=== PATIENT | male | born 1975 | race Hispanic/Latino ===

== ENCOUNTER 2020-09-04 14:30 | Inpatient (IN) | payer OTHER ==
[2020-09-04] VITALS (12 sets, daily range): BP systolic 92–111; BP diastolic 54–64
[~2020-09-04] VITALS: Ht 175.3 cm; Wt 108.9 kg
[2020-09-04] MEDS ORDERED: ASPIRIN 325 MG TABLET ONE (14:58)
[2020-09-04 15:05] LABS: BASOPHILS % (AUTO) 0.4 % (0.0-5.0); EOSINOPHILS % (AUTO) 0.3 % (0.0-8.0); LYMPHOCYTES % (AUTO) 22.8 % (21.0-51.0); MEAN CORPUSCULAR HEMOGLOBIN 29.7 pg (27.0-33.0); MEAN CORPUSCULAR HGB CONC 34.4 g/dL (32.0-36.0); MEAN CORPUSCULAR VOLUME 86.3 fL (79-99); MONOCYTES % (AUTO) 6.6 % (3.0-13.0); NEUTROPHILS % (AUTO) 69.8 % (40.0-77.0); PLATELET COUNT (AUTO) 230 K/uL (130-400); RED BLOOD CELL COUNT(AUTO) 5.56 MIL/uL (4.50-6.20); RED CELL DISTRIBUTION WIDTH 12.8 % (11.0-15.5); WHITE BLOOD COUNT (AUTO) 6.7 K/uL (4.8-10.8)
[2020-09-04 15:15] LABS: INR 1.02 (0.85-1.15); PROTHROMBIN TIME 10.9 SEC (9.6-11.6)
[2020-09-04 15:17] LABS: CREATININE 0.8 mg/dL (0.5-1.5); PARTIAL THROMBOPLASTIN TIME 25.9 SEC (26.3-35.5); POTASSIUM 3.8 mmol/L (3.5-5.1)
[2020-09-04 15:22] LABS: BILIRUBIN,TOTAL 0.8 mg/dL (0.2-1.0); TOTAL PROTEIN, SERUM 7.9 g/dL (6.0-8.3)
[2020-09-04] MEDS ORDERED: NITROGLYCERIN 1GM/1 INCH PACKET TD ONE (15:26)
[2020-09-04] MEDS ORDERED: METOPROLOL TARTRATE 1 MG/ML 5ML VIAL IV ONE ×3 (16:19→18:09)
[2020-09-04] MEDS ORDERED: HEPARIN SODIUM 1000UNIT/ML 10ML VIAL ONE (16:51)
[2020-09-04] MEDS ORDERED: SODIUM BICARB 50MEQ 50ML VIAL 50 ML ONE (16:51)
[2020-09-04] MEDS ORDERED: IOHEXOL-350 75 ML VIAL IV ONE (16:52)
[2020-09-04] MEDS ORDERED: NITROGLYCERIN 2 MG/VIAL VIAL IV ONE (16:52)
[2020-09-04] MEDS ORDERED: IOHEXOL 350 MG/ML 100ML INFUS..BTL IV ONE (16:52)
[2020-09-04] MEDS ORDERED: LIDOCAINE HCL 2% 20ML ONE (16:52)
[2020-09-04] MEDS ORDERED: IOHEXOL-350 50ML VIAL IV ONE (16:52)
[2020-09-04 17:04] LABS: APPEARANCE,URINE Clear (CLEAR); BILIRUBIN,URINE Negative (NEGATIVE); COLOR,URINE Yellow (YELLOW); GLUCOSE, URINE (UA) >=1000 mg/dL (NEGATIVE); KETONES,URINE 40 mg/dL (NEGATIVE); LEUKOCYTE ESTERASE ,URINE Negative (NEGATIVE); NITRATE,URINE Negative (NEGATIVE); OCCULT BLOOD,URINE Negative (NEGATIVE); PROTEIN,URINE Negative (NEGATIVE); UROBILINOGEN,URINE 0.2 mg/dL (0.2-1.0)
[2020-09-04] MEDS ORDERED: MEPERIDINE-PF 25 MG/ML SYG ONE ×2 (17:04→17:12)
[2020-09-04] MEDS ORDERED: MIDAZOLAM HCL 1 MG/ML 2ML VIAL ONE ×2 (17:04→17:13)
[2020-09-04] MEDS ORDERED: NITROGLYCERIN 0.4 MG SL TAB SL PRN (17:15)
[2020-09-04] MEDS ORDERED: MAG HYDROX/AL HYDROX/SIMETH ES 30 ML SUSP UDCUP PO PRN (17:15)
[2020-09-04] MEDS ORDERED: ONDANSETRON HCL 4 MG/2 ML VIAL IV PRN (17:15)
[2020-09-04] MEDS ORDERED: SODIUM CHLORIDE 0.9% 1000ML 1,000 ML IV SCH (17:15)
[2020-09-04] MEDS ORDERED: ACETAMINOPHEN 325 MG TAB PO PRN ×2 (17:15)
[2020-09-04] MEDS ORDERED: DiphenhydrAMINE HCL 50 MG/ML VIAL IV PRN (17:15)
[2020-09-04] MEDS ORDERED: LACTULOSE 20 GM/30 ML UDCUP PO PRN (17:15)
[2020-09-04] MEDS ORDERED: MORPHINE SULFATE 2 MG/ML 1ML SYG IV PRN (17:15)
[2020-09-04] MEDS ORDERED: GUAIFENESIN-DM 200/20 MG 10 ML PO PRN (17:15)
[2020-09-04] MEDS ORDERED: DIPHENHYDRAMINE HCL 25 MG CAPSULE PO PRN (17:15)
[2020-09-04 17:19] LABS: CHOLESTEROL 205 mg/dL (<200); HDL CHOLESTEROL 131 mg/dL (29-71); LDL DIRECT 132 mg/dL (0-99); TRIGLYCERIDES 151 mg/dL (30-200)
[2020-09-04 17:22] LABS: BACTERIA,URINE Rare /HPF (None Seen); MUCUS,URINE Few LPF (None Seen); SQUAMOUS EPITHELIAL CELL,UR Few /HPF (0-2)
[2020-09-04] MEDS ORDERED: ATROPINE SULFATE 0.1 MG/ML 10 ML SYG IVP ONE (17:25)
[2020-09-04] MEDS ORDERED: HEPARIN 25000 UNITS/250 ML D5W 250 ML IV ONE (17:38)
[2020-09-04] MEDS ORDERED: HEPARIN 25000 UNITS/250 ML D5W 250 ML IV SCH (18:15)
[2020-09-04] MEDS ORDERED: DEXTROSE 50%-WATER 50 ML DISP.SYRIN IV PRN (18:15)
[2020-09-04] MEDS: SODIUM CHLORIDE 0.9% 1000ML 1,000 ML IV SCH (18:15)
[2020-09-04] MEDS ORDERED: GLUCAGON 1MG KIT 1 MG ML IM PRN (18:15)
[2020-09-04 18:36] LABS: AMPHET/METH SCREEN,URINE NEGATIVE (NEGATIVE); BARBITURATE SCREEN, URINE NEGATIVE (NEGATIVE); BENZODIAZEPINES SCREEN,URINE NEGATIVE (NEGATIVE); CANNABINOID SCREEN,URINE NEGATIVE (NEGATIVE); COCAINE SCREEN,URINE NEGATIVE (NEGATIVE); OPIATE SCREEN,URINE NEGATIVE (NEGATIVE); PHENCYCLIDINE SCREEN,URINE NEGATIVE (NEGATIVE)
[2020-09-04] MEDS ORDERED: FAMOTIDINE/PF 20 MG/2 ML VIAL IV SCH (21:00)
[2020-09-04] MEDS ORDERED: ATORVASTATIN CALCIUM 40 MG TABLET PO SCH (21:00)
[2020-09-04] MEDS ORDERED: METOPROLOL TARTRATE 25 MG TAB PO SCH (21:00)
[2020-09-04] MEDS ORDERED: INSULIN HUMULIN R 100 UNIT/ML 3ML SQ SCH (21:00)
[2020-09-05] VITALS: BP 100/59
[2020-09-05] MEDS: SODIUM CHLORIDE 0.9% 1000ML 1,000 ML IV SCH (00:09)
[2020-09-05] MEDS ORDERED: ASPIRIN 325 MG TABLET PO SCH ×2 (09:00)
== END 2020-09-05 00:20 | disposition short-term general hospital (02) | DRG 251 ==
LOC: EDH 14:30 → UNDOADMIN 17:06 → EDHIP 17:06 → 2CH 19:28
PROVIDERS: ADMIT Family Medicine; ATTEND Family Medicine
PROC: 02703ZZ Dilation of Coronary Artery, One Artery, Percutaneous Approach (ICD-10-PCS; principal; 2020-09-04)
PROC: 4A023N7 Measurement of Cardiac Sampling and Pressure, Left Heart, Percutaneous Approach (ICD-10-PCS; 2020-09-04)
PROC: B2111ZZ Fluoroscopy of Multiple Coronary Arteries using Low Osmolar Contrast (ICD-10-PCS; 2020-09-04)
PROC: B2151ZZ Fluoroscopy of Left Heart using Low Osmolar Contrast (ICD-10-PCS; 2020-09-04)
DX: I21.19 ST elevation (STEMI) myocardial infarction involving other coronary artery of inferior wall (principal); E11.9 Type 2 diabetes mellitus without complications; I25.110 Atherosclerotic heart disease of native coronary artery with unstable angina pectoris; E66.9 Obesity, unspecified; Z20.828 Contact with and (suspected) exposure to other viral communicable diseases; E78.5 Hyperlipidemia, unspecified; Z87.891 Personal history of nicotine dependence; Z68.35 Body mass index [BMI] 35.0-35.9, adult; Z90.49 Acquired absence of other specified parts of digestive tract
CPT/HCPCS: 36415; 71045; 80053; 80061; 80305; 81001; 82550; 82948; 83690; 84484; 85025; 85347; 85610; 85730; 87426; 92920; 93005; 93458; 99156; 99157; C1769; C1887; C1894; G0378; J0461; J1644; J2175; J2250; J3490; J7030; Q9967

== ENCOUNTER 2020-11-20 18:43 | Inpatient (IN) | payer OTHER ==
[~2020-11-20] VITALS: Ht 175.3 cm; Wt 89.9 kg
[2020-11-20] MEDS ORDERED: 0.9%NACL 10ML VIAL IVP PRN (19:30)
[2020-11-20] MEDS ORDERED: [UNRECOGNIZED DRUG - REMARK] MISC SCH (19:45)
[2020-11-20] MEDS: NITROGLYCERIN 1GM OINT 1 INCH/1GM TD SCH (20:15)
[2020-11-20] MEDS ORDERED: TEMAZEPAM 7.5 MG CAPSULE PO PRN (20:15)
[2020-11-20] MEDS ORDERED: ONDANSETRON 4MG INJ IV PRN (20:15)
[2020-11-20] MEDS ORDERED: ACETAMINOPHEN 325 MG TAB PO PRN ×2 (20:15)
[2020-11-20] MEDS ORDERED: LACTULOSE 20 GM/30 ML UDCUP PO PRN (20:15)
[2020-11-20 20:20] LABS: BASOPHILS % (AUTO) 0.6 % (0.0-5.0); EOSINOPHILS % (AUTO) 0.4 % (0.0-8.0); HEMATOCRIT 43.7 % (42-54); LYMPHOCYTES % (AUTO) 23.2 % (21.0-51.0); MEAN CORPUSCULAR HEMOGLOBIN 28.8 pg (27.0-33.0); MEAN CORPUSCULAR HGB CONC 33.2 g/dL (32.0-36.0); MEAN CORPUSCULAR VOLUME 86.7 fL (79-99); MONOCYTES % (AUTO) 8.5 % (3.0-13.0); NEUTROPHILS % (AUTO) 66.9 % (40.0-77.0); PLATELET COUNT (AUTO) 300 K/uL (130-400); RED BLOOD CELL COUNT(AUTO) 5.04 MIL/uL (4.50-6.20); RED CELL DISTRIBUTION WIDTH 14.6 % (11.0-15.5); WHITE BLOOD COUNT (AUTO) 5.4 K/uL (4.8-10.8)
[2020-11-20 20:36] LABS: CREATININE 0.9 mg/dL (0.5-1.5); POTASSIUM 3.8 mmol/L (3.5-5.1)
[2020-11-20 20:44] LABS: HEMOGLOBIN A1C 6.6 % (4.0-6.0)
[2020-11-20 20:50] LABS: ALBUMIN 4.4 g/dL (3.5-5.0); BILIRUBIN,TOTAL 0.7 mg/dL (0.2-1.0); THYROID STIMULATING HORMONE 2.06 uIU/mL (0.36-3.74); TOTAL PROTEIN, SERUM 8.3 g/dL (6.0-8.3)
[2020-11-20 20:53] LABS: CREATINE KINASE, TOTAL 97 U/L (21-232); MYOGLOBIN 41 ng/mL (10-92); TROPONIN I < 0.04 ng/mL (0.00-0.06)
[2020-11-20] MEDS: METOPROLOL TARTRATE 25 MG TAB PO SCH (21:00)
[2020-11-20] MEDS: TICAGRELOR 90 MG TABLET PO SCH (21:00)
[2020-11-20] MEDS ORDERED: TICAGRELOR 90 MG TABLET PO SCH (22:00)
[2020-11-20] MEDS: RANOLAZINE 500 MG TAB.SR.12H PO SCH (22:00)
[2020-11-20] MEDS: ATORVASTATIN 20 MG TABLET PO SCH ×2 (22:00→23:30)
[2020-11-20] MEDS ORDERED: TICAGRELOR 90 MG TABLET ONE (22:49)
[2020-11-20] MEDS ORDERED: ATORVASTATIN 40 MG TABLET ONE (22:49)
[2020-11-20] MEDS ORDERED: RANOLAZINE 500 MG TAB.SR.12H ONE (22:49)
[2020-11-20] MEDS ORDERED: NITROGLYCERIN 1GM OINT 1 INCH/1GM TD ONE (22:50)
[2020-11-20] MEDS ORDERED: PHARMACY COMMUNICATION MISC SCH (23:30)
[2020-11-20] MEDS: ALPRAZOLAM 0.25 MG TABLET PO SCH (23:30)
[2020-11-20] MEDS: INSULIN HUMULIN R 100 UNIT/ML 3ML SQ SCH (23:31)
[2020-11-20] MEDS ORDERED: METO-408 PO (23:46)
[2020-11-20] MEDS ORDERED: NITR0.4T50 SL (23:46)
[2020-11-20] MEDS ORDERED: ATOR-2 PO (23:46)
[2020-11-20] MEDS ORDERED: TICA90TA PO (23:46)
[2020-11-20] MEDS ORDERED: ASPI-1443 PO (23:46)
[2020-11-20] MEDS ORDERED: IVAB5TAB PO (23:46)
[2020-11-20] MEDS ORDERED: ALPR0.25 PO (23:46)
[2020-11-20] MEDS ORDERED: DAPA10TA PO (23:46)
[2020-11-20] MEDS ORDERED: PANT40TA54 PO (23:46)
[2020-11-20] MEDS ORDERED: RANO10005 PO (23:46)
[2020-11-21] VITALS (14 sets, daily range): BP systolic 91–127; BP diastolic 55–75
[2020-11-21] MEDS: NITROGLYCERIN 1GM OINT 1 INCH/1GM TD SCH ×2 (04:11→12:15)
[2020-11-21 05:11] LABS: AMPHET/METH SCREEN,URINE NEGATIVE (NEGATIVE); BARBITURATE SCREEN, URINE NEGATIVE (NEGATIVE); BENZODIAZEPINES SCREEN,URINE NEGATIVE (NEGATIVE); CANNABINOID SCREEN,URINE NEGATIVE (NEGATIVE); COCAINE SCREEN,URINE NEGATIVE (NEGATIVE); OPIATE SCREEN,URINE NEGATIVE (NEGATIVE); PHENCYCLIDINE SCREEN,URINE NEGATIVE (NEGATIVE)
[2020-11-21] MEDS: INSULIN HUMULIN R 100 UNIT/ML 3ML SQ SCH ×4 (05:38→23:57)
[2020-11-21 05:52] LABS: HEMATOCRIT 41.6 % (42-54); MEAN CORPUSCULAR HEMOGLOBIN 28.3 pg (27.0-33.0); MEAN CORPUSCULAR HGB CONC 32.7 g/dL (32.0-36.0); MEAN CORPUSCULAR VOLUME 86.7 fL (79-99); RED BLOOD CELL COUNT(AUTO) 4.8 MIL/uL (4.50-6.20); RED CELL DISTRIBUTION WIDTH 14.6 % (11.0-15.5); WHITE BLOOD COUNT (AUTO) 4.6 K/uL (4.8-10.8)
[2020-11-21 06:15] LABS: ALBUMIN 3.6 g/dL (3.5-5.0); BILIRUBIN,TOTAL 0.6 mg/dL (0.2-1.0); CREATININE 0.9 mg/dL (0.5-1.5); POTASSIUM 3.5 mmol/L (3.5-5.1); THYROID STIMULATING HORMONE 1.51 uIU/mL (0.36-3.74); TOTAL PROTEIN, SERUM 6.9 g/dL (6.0-8.3); TROPONIN I 0.04 ng/mL (0.00-0.06)
[2020-11-21] MEDS: ALPRAZOLAM 0.25 MG TABLET PO SCH ×2 (09:00→21:49)
[2020-11-21] MEDS ORDERED: METOPROLOL SUCCINATE 50 MG TAB.SR.24H PO SCH (09:00)
[2020-11-21] MEDS: TICAGRELOR 90 MG TABLET PO SCH ×2 (09:32→20:25)
[2020-11-21] MEDS: ASPIRIN 81MG CHEW TAB PO SCH (09:33)
[2020-11-21] MEDS: PANTOPRAZOLE 40 MG TAB DR PO SCH (09:33)
[2020-11-21] MEDS: RANOLAZINE 500 MG TAB.SR.12H PO SCH (09:33)
[2020-11-21] MEDS: METOPROLOL TARTRATE 25 MG TAB PO SCH ×2 (09:34→21:50)
[2020-11-21] MEDS: FUROSEMIDE 20 MG TABLET PO SCH (09:34)
[2020-11-21 11:35] LABS: INR 1.01 (0.85-1.15)
[2020-11-21 11:36] LABS: PARTIAL THROMBOPLASTIN TIME 26.1 SEC (26.3-35.5)
[2020-11-21 11:45] LABS: CREATINE KINASE, TOTAL 72 U/L (21-232); MYOGLOBIN 36 ng/mL (10-92); TROPONIN I < 0.04 ng/mL (0.00-0.06)
[2020-11-21] MEDS ORDERED: DEXTROSE 50%-WATER 50 ML DISP.SYRIN IV ONE (12:46)
[2020-11-21] MEDS ORDERED: NITROGLYCERIN 50MG/D5W 250ML 1 BOT ONE (14:23)
[2020-11-21] MEDS ORDERED: IOHEXOL 350 MG/ML 100ML INFUS..BTL IV ONE ×2 (14:57→18:10)
[2020-11-21] MEDS ORDERED: NITROGLYCERIN 2 MG VIAL IV ONE (14:57)
[2020-11-21] MEDS ORDERED: HEPARIN 10,000 UNIT/10ML (1,000 UNIT/ML) VIAL ONE (14:57)
[2020-11-21] MEDS ORDERED: SODIUM BICARB 50MEQ 50ML VIAL 50 ML ONE (14:57)
[2020-11-21] MEDS ORDERED: MEPERIDINE-PF 25 MG/ML SYG ONE (14:58)
[2020-11-21] MEDS ORDERED: MIDAZOLAM HCL 1 MG/ML 2ML VIAL ONE ×2 (14:58→15:13)
[2020-11-21] MEDS ORDERED: LIDOCAINE HCL 400MG/20ML VIAL ONE (14:58)
[2020-11-21] MEDS ORDERED: FENTANYL CITRATE PF 50 MCG/1 ML 5ML AMP IV ONE ×2 (15:14)
[2020-11-21] MEDS ORDERED: FENTANYL CITRATE PF 50 MCG/1 ML 2ML VIAL ONE ×3 (15:14→15:15)
[2020-11-21] MEDS ORDERED: PROPOFOL 10 MG/ML 20ML VIAL IV ONE (15:15)
[2020-11-21] MEDS ORDERED: LIDOCAINE PF 100MG/5ML (2%) SYRINGE 5ML ONE (15:17)
[2020-11-21] MEDS ORDERED: ETOMIDATE 20MG VIAL ONE (16:11)
[2020-11-21] MEDS ORDERED: IOHEXOL-350 50ML VIAL IV ONE (18:11)
[2020-11-21] MEDS ORDERED: ASPIRIN 81MG CHEW TAB ONE (18:29)
[2020-11-21] MEDS ORDERED: TICAGRELOR 90 MG TABLET ONE (18:30)
[2020-11-21] MEDS ORDERED: PHARMACY COMMUNICATION MISC SCH (18:45)
[2020-11-21] MEDS: 0.9%NACL 1000ML 1,000 ML IV SCH (18:45)
[2020-11-21] MEDS: PHARMACY COMMUNICATION MISC SCH (19:30)
[2020-11-21] MEDS: ATORVASTATIN 20 MG TABLET PO SCH (21:49)
[2020-11-22] VITALS (28 sets, daily range): BP systolic 72–116; BP diastolic 48–66
[2020-11-22] MEDS ORDERED: 0.9%NACL 1000ML 1,000 ML IV SCH (01:45)
[2020-11-22] MEDS: PHARMACY COMMUNICATION MISC SCH ×4 (02:47→20:48)
[2020-11-22 04:13] LABS: BASOPHILS % (AUTO) 0.3 % (0.0-5.0); EOSINOPHILS % (AUTO) 0.3 % (0.0-8.0); HEMATOCRIT 35.7 % (42-54); LYMPHOCYTES % (AUTO) 19.9 % (21.0-51.0); MEAN CORPUSCULAR HEMOGLOBIN 28.1 pg (27.0-33.0); MEAN CORPUSCULAR HGB CONC 32.5 g/dL (32.0-36.0); MEAN CORPUSCULAR VOLUME 86.4 fL (79-99); MONOCYTES % (AUTO) 8.9 % (3.0-13.0); NEUTROPHILS % (AUTO) 70.4 % (40.0-77.0); PLATELET COUNT (AUTO) 229 K/uL (130-400); RED BLOOD CELL COUNT(AUTO) 4.13 MIL/uL (4.50-6.20); RED CELL DISTRIBUTION WIDTH 14.5 % (11.0-15.5); WHITE BLOOD COUNT (AUTO) 5.7 K/uL (4.8-10.8)
[2020-11-22 04:33] LABS: CREATININE 0.7 mg/dL (0.5-1.5); POTASSIUM 3.5 mmol/L (3.5-5.1)
[2020-11-22] MEDS: INSULIN HUMULIN R 100 UNIT/ML 3ML SQ SCH ×4 (05:33→20:18)
[2020-11-22] MEDS: 0.9%NACL 1000ML 1,000 ML IV SCH (06:27)
[2020-11-22] MEDS ORDERED: POTASSIUM CHLORIDE 10% ELIXIR 20 MEQ/15 ML UDCUP PO PRN (09:00)
[2020-11-22] MEDS ORDERED: KCL 20 MEQ ERTAB PO PRN (09:00)
[2020-11-22] MEDS: METOPROLOL TARTRATE 25 MG TAB PO SCH ×2 (09:00→20:33)
[2020-11-22] MEDS ORDERED: POTASSIUM CHLORIDE 10MEQ/100ML 100 ML IV PRN (09:00)
[2020-11-22] MEDS ORDERED: POTASSIUM CHLORIDE 20MEQ/100ML 100 ML IV PRN (09:00)
[2020-11-22] MEDS: ALPRAZOLAM 0.25 MG TABLET PO SCH ×2 (09:00→20:33)
[2020-11-22] MEDS: FUROSEMIDE 20 MG TABLET PO SCH (09:45)
[2020-11-22] MEDS: ASPIRIN 81MG CHEW TAB PO SCH (09:45)
[2020-11-22] MEDS: PANTOPRAZOLE 40 MG TAB DR PO SCH (09:46)
[2020-11-22] MEDS: TICAGRELOR 90 MG TABLET PO SCH ×2 (09:47→20:31)
[2020-11-22] MEDS ORDERED: IVABRADINE HCL 5 MG TABLET PO SCH (12:15)
[2020-11-22] MEDS: IVABRADINE HCL 5 MG TABLET PO SCH (20:32)
[2020-11-22] MEDS: ATORVASTATIN 20 MG TABLET PO SCH (20:32)
[2020-11-23] VITALS (9 sets, daily range): BP systolic 90–112; BP diastolic 42–63
[2020-11-23 06:10] LABS: BASOPHILS % (AUTO) 0.3 % (0.0-5.0); EOSINOPHILS % (AUTO) 0.5 % (0.0-8.0); HEMATOCRIT 32.4 % (42-54); MEAN CORPUSCULAR HEMOGLOBIN 28.9 pg (27.0-33.0); NEUTROPHILS % (AUTO) 73.9 % (40.0-77.0); PLATELET COUNT (AUTO) 223 K/uL (130-400); RED BLOOD CELL COUNT(AUTO) 3.81 MIL/uL (4.50-6.20); RED CELL DISTRIBUTION WIDTH 14.6 % (11.0-15.5); WHITE BLOOD COUNT (AUTO) 6.2 K/uL (4.8-10.8)
[2020-11-23 06:20] LABS: CREATININE 0.7 mg/dL (0.5-1.5); MAGNESIUM 1.7 mg/dL (1.80-2.40); POTASSIUM 3.2 mmol/L (3.5-5.1)
[2020-11-23] MEDS: INSULIN HUMULIN R 100 UNIT/ML 3ML SQ SCH ×2 (06:23→11:30)
[2020-11-23] MEDS: KCL 20 MEQ ERTAB PO PRN ×2 (06:47→08:45)
[2020-11-23] MEDS: METOPROLOL TARTRATE 25 MG TAB PO SCH (08:12)
[2020-11-23] MEDS ORDERED: MAGNESIUM 2GM PREMIX 50ML 50 ML IV ONE (08:43)
[2020-11-23] MEDS: ALPRAZOLAM 0.25 MG TABLET PO SCH (08:44)
[2020-11-23] MEDS: TICAGRELOR 90 MG TABLET PO SCH (08:44)
[2020-11-23] MEDS: FUROSEMIDE 20 MG TABLET PO SCH (08:44)
[2020-11-23] MEDS: ASPIRIN 81MG CHEW TAB PO SCH (08:44)
[2020-11-23] MEDS: PANTOPRAZOLE 40 MG TAB DR PO SCH (08:44)
[2020-11-23] MEDS ORDERED: MAGNESIUM 2GM PREMIX 50ML 50 ML IV PRN (08:45)
[2020-11-23] MEDS: IVABRADINE HCL 5 MG TABLET PO SCH (08:45)
[2020-11-23] MEDS: PHARMACY COMMUNICATION MISC SCH (09:06)
[2020-11-23] MEDS ORDERED: LISI2.5T13 PO (10:35)
[2020-12-04] MEDS ORDERED: LEVO500T90 PO (08:56)
== END 2020-11-23 14:45 | disposition home or self-care (01) | DRG 215 ==
LOC: EDH 18:43 → EDHIP 18:44 → INTOOBSV 18:44 → UNDOADMOB 18:44 → OBSVTOIN 18:44 → 3CH 18:44 → EDHIP 22:28 → 3CH 11-21 19:33 → 2CH 11-21 19:33 → UNDODISIN 11-23 14:45
PROVIDERS: ADMIT Internal Medicine; ATTEND Internal Medicine
PROC: 027337Z Dilation of Coronary Artery, Four or More Arteries with Four or More Drug-eluting Intraluminal Devices, Percutaneous Approach (ICD-10-PCS; principal; 2020-11-21)
PROC: 02HA3RZ Insertion of Short-term External Heart Assist System into Heart, Percutaneous Approach (ICD-10-PCS; 2020-11-21)
PROC: 5A02210 Assistance with Cardiac Output using Balloon Pump, Continuous (ICD-10-PCS; 2020-11-21)
PROC: 4A023N7 Measurement of Cardiac Sampling and Pressure, Left Heart, Percutaneous Approach (ICD-10-PCS; 2020-11-21)
PROC: B2111ZZ Fluoroscopy of Multiple Coronary Arteries using Low Osmolar Contrast (ICD-10-PCS; 2020-11-21)
PROC: B2181ZZ Fluoroscopy of Left Internal Mammary Bypass Graft using Low Osmolar Contrast (ICD-10-PCS; 2020-11-21)
PROC: 02703ZZ Dilation of Coronary Artery, One Artery, Percutaneous Approach (ICD-10-PCS; 2020-11-21)
DX: I25.110 Atherosclerotic heart disease of native coronary artery with unstable angina pectoris (principal); I10 Essential (primary) hypertension; I95.9 Hypotension, unspecified; I25.5 Ischemic cardiomyopathy; E78.5 Hyperlipidemia, unspecified; E11.9 Type 2 diabetes mellitus without complications; I65.29 Occlusion and stenosis of unspecified carotid artery; Z90.49 Acquired absence of other specified parts of digestive tract; Z95.1 Presence of aortocoronary bypass graft; I25.2 Old myocardial infarction; Z83.3 Family history of diabetes mellitus; Z82.49 Family history of ischemic heart disease and other diseases of the circulatory system
CPT/HCPCS: 33990; 36415; 71045; 80048; 80053; 80061; 80305; 82550; 82948; 83036; 83735; 83874; 83880; 84443; 84484; 85025; 85027; 85347; 85610; 85730; 92920; 93005; 93459; 93931; 93971; C1725; C1760; C1769; C1887; C1894; C9600; C9604; G0378; J1644; J2001; J2175; J2250; J2704; J3010; J3475; J3490; J7030; J7070; Q9967

== ENCOUNTER 2020-12-01 02:42 | Inpatient (IN) | payer OTHER ==
[~2020-12-01] VITALS: Ht 175.3 cm; Wt 88.5 kg
[~2020-12-01 02:42] MED LIST: ALPR0.25 PO; ASPI-1443 PO; ATOR-2 PO; IVAB5TAB PO; LISI2.5T2 PO; METO-408 PO; NITR0.4T50 SL; PANT40TA54 PO; TICA90TA PO
[2020-12-01 03:11] LABS: APPEARANCE,URINE Cloudy (CLEAR); BILIRUBIN,URINE Negative (NEGATIVE); COLOR,URINE Yellow (YELLOW); GLUCOSE, URINE (UA) Negative (NEGATIVE); KETONES,URINE 15 mg/dL (NEGATIVE); LEUKOCYTE ESTERASE ,URINE Large (NEGATIVE); NITRATE,URINE Positive (NEGATIVE); OCCULT BLOOD,URINE Moderate (NEGATIVE); PH,URINE 5.5 (5.0-8.0); PROTEIN,URINE Trace mg/dL (NEGATIVE)
[2020-12-01 03:12] LABS: BASOPHILS % (AUTO) 0.3 % (0.0-5.0); EOSINOPHILS % (AUTO) 0.3 % (0.0-8.0); HEMATOCRIT 34.1 % (42-54); LYMPHOCYTES % (AUTO) 7.8 % (21.0-51.0); MEAN CORPUSCULAR HEMOGLOBIN 28.9 pg (27.0-33.0); MEAN CORPUSCULAR HGB CONC 32.8 g/dL (32.0-36.0); MEAN CORPUSCULAR VOLUME 88.1 fL (79-99); MONOCYTES % (AUTO) 6.5 % (3.0-13.0); NEUTROPHILS % (AUTO) 84.8 % (40.0-77.0); PLATELET COUNT (AUTO) 252 K/uL (130-400); RED BLOOD CELL COUNT(AUTO) 3.87 MIL/uL (4.50-6.20); RED CELL DISTRIBUTION WIDTH 15.4 % (11.0-15.5); WHITE BLOOD COUNT (AUTO) 9.7 K/uL (4.8-10.8)
[2020-12-01 03:19] LABS: BACTERIA,URINE Many /HPF (None Seen); WBC,URINE 51-100 /HPF (0-1)
[2020-12-01 03:28] LABS: ALBUMIN 3.7 g/dL (3.5-5.0); BILIRUBIN,TOTAL 1.2 mg/dL (0.2-1.0); CREATININE 0.8 mg/dL (0.5-1.5); POTASSIUM 3.5 mmol/L (3.5-5.1); TOTAL PROTEIN, SERUM 7.2 g/dL (6.0-8.3)
[2020-12-01] MEDS ORDERED: CEFTRIAXONE SODIUM 1 GM ONE (03:40)
[2020-12-01 04:18] LABS: INR 1.03 (0.85-1.15); PROTHROMBIN TIME 11.2 SEC (9.6-11.6)
[2020-12-01 04:19] LABS: PARTIAL THROMBOPLASTIN TIME 24.7 SEC (26.3-35.5)
[2020-12-01] MEDS ORDERED: ASPIRIN 81MG TAB.CHEW ONE (05:20)
[2020-12-01] MEDS ORDERED: TICAGRELOR 90 MG TABLET ONE (05:20)
[2020-12-01 08:00] VITALS: BP 109/64
[2020-12-01] MEDS ORDERED: POTASSIUM CHLORIDE 20 MEQ ERTAB PO SCH (08:00)
[2020-12-01] MEDS: METOPROLOL TARTRATE 25 MG TAB PO SCH ×2 (08:49→20:37)
[2020-12-01] MEDS: PANTOPRAZOLE SODIUM 40 MG TABLET.DR PO SCH (08:49)
[2020-12-01] MEDS: ASPIRIN 81 MG EC TAB PO SCH (08:50)
[2020-12-01] MEDS: TICAGRELOR 90 MG TABLET PO SCH ×2 (08:51→20:36)
[2020-12-01] MEDS: IVABRADINE HCL 5 MG TABLET PO SCH ×2 (09:00→20:36)
[2020-12-01 10:24] LABS: AMPHET/METH SCREEN,URINE NEGATIVE (NEGATIVE); BARBITURATE SCREEN, URINE NEGATIVE (NEGATIVE); BENZODIAZEPINES SCREEN,URINE NEGATIVE (NEGATIVE); CANNABINOID SCREEN,URINE NEGATIVE (NEGATIVE); COCAINE SCREEN,URINE NEGATIVE (NEGATIVE); OPIATE SCREEN,URINE NEGATIVE (NEGATIVE); PHENCYCLIDINE SCREEN,URINE NEGATIVE (NEGATIVE)
[2020-12-01] MEDS ORDERED: MAGNESIUM 2GM PREMIX 50ML 50 ML IV SCH (11:00)
[2020-12-01 11:36] VITALS: BP 94/56
[2020-12-01 16:08] VITALS: BP 118/66
[2020-12-01] MEDS ORDERED: ACETAMINOPHEN 325 MG TAB ONE (16:56)
[2020-12-01] MEDS: ATORVASTATIN CALCIUM 40 MG TABLET PO SCH (16:57)
[2020-12-01] MEDS ORDERED: ACETAMINOPHEN EXTRA STRENGTH 500 MG TABLET PO PRN (17:00)
[2020-12-01 17:54] LABS: CRP QUANTITATIVE 75.5 mg/L (0.00-9.0)
[2020-12-01 19:46] VITALS: BP 100/59
[2020-12-01] MEDS ORDERED: LISINOPRIL 2.5 MG TABLET PO SCH (21:00)
[2020-12-02] VITALS (7 sets, daily range): BP systolic 93–103; BP diastolic 55–60
[2020-12-02] MEDS: CEFTRIAXONE SODIUM 1 GM IV SCH (04:05)
[2020-12-02 04:37] LABS: BASOPHILS % (AUTO) 0.3 % (0.0-5.0); EOSINOPHILS % (AUTO) 0.4 % (0.0-8.0); HEMATOCRIT 34.5 % (42-54); LYMPHOCYTES % (AUTO) 8.7 % (21.0-51.0); MEAN CORPUSCULAR HEMOGLOBIN 28.2 pg (27.0-33.0); MEAN CORPUSCULAR HGB CONC 31.9 g/dL (32.0-36.0); MEAN CORPUSCULAR VOLUME 88.5 fL (79-99); MONOCYTES % (AUTO) 6.6 % (3.0-13.0); NEUTROPHILS % (AUTO) 83.5 % (40.0-77.0); PLATELET COUNT (AUTO) 239 K/uL (130-400); RED CELL DISTRIBUTION WIDTH 15.3 % (11.0-15.5); WHITE BLOOD COUNT (AUTO) 10.8 K/uL (4.8-10.8)
[2020-12-02 04:53] LABS: CREATININE 0.7 mg/dL (0.5-1.5); POTASSIUM 3.9 mmol/L (3.5-5.1)
[2020-12-02] MEDS: PANTOPRAZOLE SODIUM 40 MG TABLET.DR PO SCH (09:20)
[2020-12-02] MEDS: TICAGRELOR 90 MG TABLET PO SCH ×2 (09:20→20:50)
[2020-12-02] MEDS: METOPROLOL TARTRATE 25 MG TAB PO SCH ×2 (09:20→20:50)
[2020-12-02] MEDS: ASPIRIN 81 MG EC TAB PO SCH (09:20)
[2020-12-02] MEDS: IVABRADINE HCL 5 MG TABLET PO SCH ×2 (09:20→20:50)
[2020-12-02] MEDS: ATORVASTATIN CALCIUM 40 MG TABLET PO SCH (16:33)
[2020-12-02] MEDS: INSULIN HUMULIN R 100 UNIT/ML 3ML SQ SCH ×2 (16:34→20:56)
[2020-12-03] VITALS (7 sets, daily range): BP systolic 101–129; BP diastolic 51–68
[2020-12-03] MEDS: ALPRAZOLAM 0.25 MG TABLET PO PRN (02:55)
[2020-12-03] MEDS: CEFTRIAXONE SODIUM 1 GM IV SCH ×2 (02:55→03:58)
[2020-12-03 05:36] LABS: BASOPHILS % (AUTO) 0.3 % (0.0-5.0); EOSINOPHILS % (AUTO) 2.6 % (0.0-8.0); HEMATOCRIT 34.1 % (42-54); LYMPHOCYTES % (AUTO) 10.3 % (21.0-51.0); MEAN CORPUSCULAR HEMOGLOBIN 28.6 pg (27.0-33.0); MEAN CORPUSCULAR HGB CONC 32.8 g/dL (32.0-36.0); MONOCYTES % (AUTO) 6.9 % (3.0-13.0); NEUTROPHILS % (AUTO) 79.6 % (40.0-77.0); PLATELET COUNT (AUTO) 233 K/uL (130-400); RED BLOOD CELL COUNT(AUTO) 3.92 MIL/uL (4.50-6.20); RED CELL DISTRIBUTION WIDTH 15.2 % (11.0-15.5); WHITE BLOOD COUNT (AUTO) 7.2 K/uL (4.8-10.8)
[2020-12-03 06:08] LABS: CREATININE 0.7 mg/dL (0.5-1.5); POTASSIUM 3.9 mmol/L (3.5-5.1)
[2020-12-03] MEDS: INSULIN HUMULIN R 100 UNIT/ML 3ML SQ SCH ×5 (06:17→21:00)
[2020-12-03] MEDS: PANTOPRAZOLE SODIUM 40 MG TABLET.DR PO SCH (09:49)
[2020-12-03] MEDS: METOPROLOL TARTRATE 25 MG TAB PO SCH ×2 (09:49→21:17)
[2020-12-03] MEDS: TICAGRELOR 90 MG TABLET PO SCH ×2 (09:49→21:16)
[2020-12-03] MEDS: IVABRADINE HCL 5 MG TABLET PO SCH ×2 (09:49→21:00)
[2020-12-03] MEDS: ASPIRIN 81 MG EC TAB PO SCH (09:49)
[2020-12-03] MEDS ORDERED: ENOXAPARIN SODIUM 120 MG/0.8ML SQ SCH (12:00)
[2020-12-03] MEDS ORDERED: ENOXAPARIN SODIUM 30 MG/0.3 ML SQ SCH (12:00)
[2020-12-03] MEDS: DOCUSATE SODIUM 100 MG CAP PO SCH ×2 (13:28→21:16)
[2020-12-03] MEDS: ATORVASTATIN CALCIUM 40 MG TABLET PO SCH (17:33)
[2020-12-04] MEDS: ALPRAZOLAM 0.25 MG TABLET PO PRN (00:43)
[2020-12-04] MEDS: CEFTRIAXONE SODIUM 1 GM IV SCH (03:43)
[2020-12-04 03:50] VITALS: BP 102/61
[2020-12-04 05:23] LABS: BASOPHILS % (AUTO) 0.6 % (0.0-5.0); EOSINOPHILS % (AUTO) 0.9 % (0.0-8.0); HEMATOCRIT 34.4 % (42-54); LYMPHOCYTES % (AUTO) 24.1 % (21.0-51.0); MEAN CORPUSCULAR HEMOGLOBIN 28.9 pg (27.0-33.0); MEAN CORPUSCULAR HGB CONC 33.7 g/dL (32.0-36.0); MEAN CORPUSCULAR VOLUME 85.6 fL (79-99); MONOCYTES % (AUTO) 10.9 % (3.0-13.0); NEUTROPHILS % (AUTO) 63.5 % (40.0-77.0); PLATELET COUNT (AUTO) 235 K/uL (130-400); RED BLOOD CELL COUNT(AUTO) 4.02 MIL/uL (4.50-6.20); RED CELL DISTRIBUTION WIDTH 14.9 % (11.0-15.5); WHITE BLOOD COUNT (AUTO) 3.5 K/uL (4.8-10.8)
[2020-12-04 05:46] LABS: CREATININE 0.7 mg/dL (0.5-1.5); POTASSIUM 3.5 mmol/L (3.5-5.1)
[2020-12-04] MEDS: INSULIN HUMULIN R 100 UNIT/ML 3ML SQ SCH ×2 (06:47→11:30)
[2020-12-04 07:58] VITALS: BP 106/66
[2020-12-04] MEDS ORDERED: LEVO500T89 PO (08:56)
[2020-12-04] MEDS: ASPIRIN 81 MG EC TAB PO SCH (09:43)
[2020-12-04] MEDS: PANTOPRAZOLE SODIUM 40 MG TABLET.DR PO SCH (09:43)
[2020-12-04] MEDS: DOCUSATE SODIUM 100 MG CAP PO SCH (09:43)
[2020-12-04] MEDS: IVABRADINE HCL 5 MG TABLET PO SCH (09:43)
[2020-12-04] MEDS: TICAGRELOR 90 MG TABLET PO SCH (09:43)
[2020-12-04] MEDS: METOPROLOL TARTRATE 25 MG TAB PO SCH (09:44)
[2020-12-04 12:00] VITALS: BP 100/66
== END 2020-12-04 15:41 | disposition home or self-care (01) | DRG 309 ==
LOC: EDH 02:42 → OBSVTOIN 05:42 → EDHIP 05:42 → 4CH 06:58
PROVIDERS: ADMIT Family Medicine; ATTEND Family Medicine
DX: R00.2 Palpitations (principal); N39.0 Urinary tract infection, site not specified; I50.22 Chronic systolic (congestive) heart failure; I11.0 Hypertensive heart disease with heart failure; E11.9 Type 2 diabetes mellitus without complications; E78.5 Hyperlipidemia, unspecified; I25.10 Atherosclerotic heart disease of native coronary artery without angina pectoris; K21.9 Gastro-esophageal reflux disease without esophagitis; I25.5 Ischemic cardiomyopathy; B96.1 Klebsiella pneumoniae [K. pneumoniae] as the cause of diseases classified elsewhere; M79.81 Nontraumatic hematoma of soft tissue; I49.3 Ventricular premature depolarization; Z95.1 Presence of aortocoronary bypass graft; Z87.891 Personal history of nicotine dependence; I25.2 Old myocardial infarction; Z95.5 Presence of coronary angioplasty implant and graft; Z82.49 Family history of ischemic heart disease and other diseases of the circulatory system; Z83.3 Family history of diabetes mellitus; Z90.49 Acquired absence of other specified parts of digestive tract; Z79.899 Other long term (current) drug therapy; Z79.82 Long term (current) use of aspirin
CPT/HCPCS: 36415; 71045; 76882; 80048; 80053; 80305; 81001; 82550; 82728; 82948; 83605; 83615; 83690; 83735; 84145; 84484; 85025; 85610; 85651; 85730; 86140; 87040; 87077; 87088; 87186; 93005; G0378; J0696; J1815; J3475

== ENCOUNTER → 2021-12-17 | Outpatient (CLI) | payer OTHER ==
[~2021-12-17] MED LIST changes: +LEVO500T90 PO; -LISI2.5T2 PO
== END | disposition home or self-care (01) ==
LOC: SHCH 14:17
PROVIDERS: ATTEND Internal Medicine Cardiovascular Disease
DX: I65.23 Occlusion and stenosis of bilateral carotid arteries (principal); I25.10 Atherosclerotic heart disease of native coronary artery without angina pectoris
CPT/HCPCS: 93880

== ENCOUNTER 2023-03-30 07:04 | Day surgery (SDC) | payer OTHER ==
[2023-03-26 12:19] VITALS: BP 96/54; PULSE 60; RESP 16
[2023-03-26 12:43] LABS: BASOPHILS % (AUTO) 0.8 % (0.0-5.0); EOSINOPHILS % (AUTO) 0.6 % (0.0-8.0); HEMATOCRIT 46.9 % (42-54); LYMPHOCYTES % (AUTO) 21.4 % (21.0-51.0); MEAN CORPUSCULAR HEMOGLOBIN 30.2 pg (27.0-33.0); MEAN CORPUSCULAR VOLUME 91.2 fL (79-99); NEUTROPHILS % (AUTO) 70.8 % (40.0-77.0); PLATELET COUNT (AUTO) 226 K/uL (130-400); RED BLOOD CELL COUNT(AUTO) 5.14 MIL/uL (4.50-6.20); RED CELL DISTRIBUTION WIDTH 13.2 % (11.0-15.5); WHITE BLOOD COUNT (AUTO) 5.1 K/uL (4.8-10.8)
[2023-03-26 12:51] LABS: CREATININE 0.9 mg/dL (0.5-1.5); POTASSIUM 3.9 mmol/L (3.5-5.1)
[2023-03-26 12:57] LABS: APPEARANCE,URINE CLEAR (CLEAR); BILIRUBIN,URINE NEGATIVE (NEGATIVE); COLOR,URINE LIGHT-YELLOW (YELLOW); GLUCOSE, URINE (UA) >=1000 mg/dL (NEGATIVE); KETONES,URINE NEGATIVE (NEGATIVE); LEUKOCYTE ESTERASE ,URINE NEGATIVE Leu/uL (NEGATIVE); NITRATE,URINE NEGATIVE (NEGATIVE); PH,URINE 7.5 (5.0-8.0); PROTEIN,URINE 30 mg/dL (NEGATIVE); UROBILINOGEN,URINE 0.2 mg/dL (0.2-1.0)
[2023-03-26 13:02] LABS: INR 0.97 (0.85-1.15); OTHER CASTS, URINE 1 /LPF (None Seen); PROTHROMBIN TIME 11.3 SEC (9.6-11.6); WBC,URINE 0-1 /HPF (0-1)
[2023-03-26 13:03] LABS: PARTIAL THROMBOPLASTIN TIME 29.1 SEC (26.3-35.5)
[2023-03-26 13:08] LABS: B-TYPE NATRIURETIC PEPTIDE 89 pg/mL (0-100)
[2023-03-30] VITALS (12 sets, daily range): BP systolic 91–105; BP diastolic 52–63; PULSE 60–71; RESP 14–18
[~2023-03-30] VITALS: Ht 176.5 cm; Wt 84.7 kg
[~2023-03-30 07:04] MED LIST changes: -ALPR0.25 PO; -ATOR-2 PO; +DAPA10TA PO; -IVAB5TAB PO; +IVAB7.5T PO; -LEVO500T90 PO; +LEVO5TAB13 PO; -NITR0.4T50 SL; -PANT40TA54 PO; +ROSU40TA21 PO
[2023-03-30] MEDS ORDERED: 0.9%NACL 1000ML 1,000 ML IV ONE (07:26)
[2023-03-30] MEDS ORDERED: HEPARIN 10,000 UNIT/10ML (1,000 UNIT/ML) VIAL ONE (08:58)
[2023-03-30] MEDS ORDERED: LIDOCAINE HCL 400MG/20ML VIAL ONE (08:58)
[2023-03-30] MEDS ORDERED: MIDAZOLAM HCL 1 MG/ML 2ML VIAL ONE ×3 (08:58→09:56)
[2023-03-30] MEDS ORDERED: IOHEXOL-350 50ML VIAL IV ONE (08:58)
[2023-03-30] MEDS ORDERED: SODIUM BICARB 50MEQ 50ML VIAL 50 ML ONE (08:58)
[2023-03-30] MEDS ORDERED: MEPERIDINE-PF 25 MG/ML SYG ONE ×3 (08:58→09:56)
[2023-03-30] MEDS ORDERED: IOHEXOL 350 MG/ML 100ML INFUS..BTL IV ONE (08:58)
[2023-03-30] MEDS ORDERED: NITROGLYCERIN 50MG VIAL ONE (08:58)
[2023-03-30] MEDS ORDERED: ASPIRIN 81MG CHEW TAB ONE (10:24)
[2023-03-30] MEDS ORDERED: TICAGRELOR 90 MG TABLET ONE (10:25)
[2023-03-30] MEDS ORDERED: ACETAMINOPHEN WITH CODEINE 1 TAB TAB PO PRN ×2 (10:30)
[2023-03-30] MEDS ORDERED: DEXTROSE 50%-WATER 50 ML DISP.SYRIN IV PRN (10:30)
[2023-03-30] MEDS ORDERED: 0.9%NACL 1000ML 1,000 ML IV SCH (10:30)
[2023-03-30] MEDS ORDERED: INSULIN HUMULIN R 100 UNIT/ML 3ML SQ SCH (11:30)
== END 2023-03-30 16:45 | disposition home or self-care (01) ==
LOC: DAH 07:04
PROVIDERS: ATTEND Internal Medicine Cardiovascular Disease
DX: I25.110 Atherosclerotic heart disease of native coronary artery with unstable angina pectoris (principal); I25.82 Chronic total occlusion of coronary artery; I25.710 Atherosclerosis of autologous vein coronary artery bypass graft(s) with unstable angina pectoris; I25.5 Ischemic cardiomyopathy; I11.0 Hypertensive heart disease with heart failure; I50.42 Chronic combined systolic (congestive) and diastolic (congestive) heart failure; E78.5 Hyperlipidemia, unspecified; E11.319 Type 2 diabetes mellitus with unspecified diabetic retinopathy without macular edema; E11.51 Type 2 diabetes mellitus with diabetic peripheral angiopathy without gangrene; Z79.01 Long term (current) use of anticoagulants; Z79.899 Other long term (current) drug therapy; Z95.5 Presence of coronary angioplasty implant and graft
CPT/HCPCS: 80048; 83880; 85025; 85610; 85730; 81001; 36415; 71045; 93005; 85347; 82948 ×2; 92920; 93459; C9600; C1769 ×2; C1894; C1760; C1887 ×2; C1874; J3490 ×3; J7030; J1644 ×2; J2250 ×3; J2175 ×3; Q9967; A4215; A4335; A4222; A4221; A4663; A4216; A4606; Q9965; A4223 ×3; 96360; 96361; 99156; 99157

== ENCOUNTER 2025-04-14 06:01 | Day surgery (SDC) | payer OTHER ==
[2025-04-12 09:05] LABS: IMMATURE GRANULOCYTE ABSOLUTE 0.01 K/uL (0-1); NUCLEATED RED BLOOD CELLS 0.0 % (0.0-0.19); PLATELET COUNT (AUTO) 170 K/uL (130-400); RED BLOOD CELL COUNT(AUTO) 5.09 MIL/uL (4.50-6.20); RED CELL DISTRIBUTION WIDTH 13.0 % (11.0-15.5); WHITE BLOOD COUNT (AUTO) 4.5 K/uL (4.8-10.8)
[2025-04-12 09:08] VITALS: BP 111/63; PULSE 68; RESP 18; TEMP 97.5
[2025-04-12 09:12] LABS: APPEARANCE,URINE CLEAR (CLEAR); GLUCOSE, URINE (UA) >=1000 mg/dL (NEGATIVE); LEUKOCYTE ESTERASE ,URINE NEGATIVE Leu/uL (NEGATIVE); NITRATE,URINE NEGATIVE (NEGATIVE); OCCULT BLOOD,URINE +- (TRACE) (NEGATIVE)
[2025-04-12 09:15] LABS: ADD UA MICROSCOPIC YES
[2025-04-12 09:15] LABS: INR 1.01 (0.85-1.15)
--- NOTE | 2025-04-12 09:37 | EKG ---
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
[2025-04-12 09:51] LABS: CREATININE 0.8 mg/dL (0.5-1.3); GLOMERULAR FILTR. RATE CALC 107.0 mL/min (>90); GLUCOSE,RANDOM 166.0 mg/dL (70-105); SODIUM SERUM 139.0 mmol/L (136-145); UREA NITROGEN, BLOOD 18.0 mg/dL (7-18)
--- NOTE | 2025-04-12 10:30 | HMCIMG ---
Examination: Chest, 1 view Clinical history: Preoperative Comparison: March 26, 2023 Findings: AP view of the chest is submitted. Prior sternotomy. Heart size is within normal limits. Presumed prior coronary artery stenting. Pulmonary vessels are within normal limits. Lungs are clear. No pleural effusion or pneumothorax. Impression: No acute cardiopulmonary process. /[place]
[~2025-04-14] VITALS: Ht 175.3 cm; Wt 91.8 kg
[2025-04-14] VITALS (12 sets, daily range): BP systolic 98–111; BP diastolic 54–70; PULSE 55–73; RESP 12–17; TEMP 97–97.3
[~2025-04-14 06:01] MED LIST changes: +MONT-39 PO; -ROSU40TA21 PO; +ROSU40TA88 PO; +SEMA1PEN3 SQ
[2025-04-14] MEDS: 0.9%NACL 1000ML 1,000 ML IV SCH (06:37)
[2025-04-14] MEDS ORDERED: SODIUM BICARB 50MEQ 50ML VIAL 50 ML ONE (07:18)
[2025-04-14] MEDS ORDERED: IOHEXOL 350 MG/ML 100ML INFUS..BTL IV ONE (07:18)
[2025-04-14] MEDS ORDERED: LIDOCAINE HCL 400MG/20ML VIAL ONE (07:18)
[2025-04-14] MEDS ORDERED: HEParin-NS 1,000 UNIT/500 ML 1,000 ML IV ONE (07:18)
[2025-04-14] MEDS ORDERED: NITROGLYCERIN 50MG VIAL ONE (07:19)
[2025-04-14] MEDS ORDERED: MIDAZOLAM HCL 1 MG/ML 2ML VIAL ONE ×4 (07:37→08:57)
[2025-04-14] MEDS ORDERED: IOHEXOL-350 50ML VIAL IV ONE (08:14)
[2025-04-14] MEDS ORDERED: 0.9%NACL 1000ML 1,000 ML IV SCH (09:30)
[2025-04-14] MEDS ORDERED: DEXTROSE 50%-WATER 50 ML DISP.SYRIN IV PRN (09:30)
--- NOTE | 2025-04-14 11:00 | NUR ---
URINARY: VOIDED 400 CC CLEAR YELLOW COLOR URINE PER URINAL WITHOUT DIFFICULTY.
--- NOTE | 2025-04-14 11:08 | CCATH ---
PROCEDURE NOTE PROCEDURES: * Left heart catheterization. * Left ventriculogram. * Diagnostic selective right and left coronary arteriogram. * RUFF angiogram. * Balloon angioplasty with a drug-coated balloon of the intermediate. * Balloon angioplasty with a drug-coated balloon of the left main. * PTCA of the intermediate with stent placement. * Conscious sedation for 90 minutes. INDICATIONS: * Known history of coronary artery disease. * Status post remote coronary artery bypass graft surgery with prior documentation of two failed grafts. * Status post remote multivessel angioplasty and stent procedure. * Markedly abnormal Cardiolite scan. * Ischemic cardiomyopathy with a drop in ejection fraction of 35%. COMPLICATIONS: None. TOTAL CONTRAST: 130 mL. APPROACH: Right femoral approach. DESCRIPTION OF PROCEDURE: The patient was taken to the cardiac catheterization lab after appropriate operative consent was signed. He was prepped and draped in usual fashion. After conscious sedation was administered, the right common femoral artery was accessed utilizing ultrasound guidance. At this point, FL3.5, 6-Lao catheter was advanced in a retrograde fashion by the modified Seldinger technique. The catheter was engaged in the ostium of the left main. The left main was imaged in multiplane. This identified a patent left main with a stent within the left main traversing the ostium of the circumflex and the LAD and supplying large intermediate. The left main stent was slightly under deployed but did not seem to have any significant stenotic lesions. The LAD was 100% occluded in its ostium and was not visualized by catawba injection. The circumflex was widely patent and was jailed; however, there was adequate supply into the circumflex and into the second obtuse marginal. There was an area of balloon angioplasty POBA that was patent, this was performed in November 2020. The intermediate was a large vessel that was branching. It had overlapping stents extending from the left main all the way to the intermediate. The stent in the intermediate had three areas of in-stent restenosis with a distal area of 50%, mid segment of 80%, and a proximal segment of 80%. At this point, the catheter was withdrawn and left internal mammary artery catheter was then utilized and advanced over an indwelling wire and placed in the left internal mammary artery. The internal mammary artery was imaged in multiplane. This was a large vessel that had a patent stent in its body. It supplied a moderately sized LAD. There was a distal RUFF to mid LAD stent extending from the RUFF to the LAD and anastomotic stent that was widely patent with good flow. There was evidence of retrograde flow into the proximal LAD and the diagonal as well as distal to the diagonal. The LAD was seen to collateralize the PDA via left to right collaterals. The catheter was withdrawn and an FR4 6-Lao catheter was selected. This was engaged in the ostium of the right coronary artery. The right coronary artery had severe diffuse disease ____ occluded in its mid portion, which has been documented on prior studies. A pigtail catheter was placed in the left ventricular cavity. Left ventricular end diastolic pressure measurement was obtained. Ventriculography was performed in the RA projection documenting inferior apical hypokinesis with an EF in the 35% range. There was no MR and no on pullback. Given this patient's cardiac status, the decision was made to proceed with angioplasty and drug-coated balloon intervention in the intermediate and into the left main. The patient had 2.5 stents deployed previously. I elected to upsize to a 3.0 drug-coated balloon, which was advanced to position into the intermediate as well as the left main and inflated according to the protocol to 6 atmospheres. This resulted in some improvement, but the areas were still under dilated. We then utilized noncompliant 3.0 x 27 mm balloon, which was positioned intermediate and in the left main and inflated to 20 atmospheres with improvement in the caliber of the stent; however, there was an area in the proximal intermediate that still showed some under dilation. Given that, we utilized 3.0 x 15 Xience drug-coated stent, which was positioned in the area of the intermediate just distal to the circumflex takeoff. This was deployed to nominal pressures with good final angiographic results. At this point, the procedure was completed, the patient tolerated it well. Basket was utilized with good hemostasis. The patient left the cardiac catheterization lab in stable condition. FINAL IMPRESSION: * Severe three-vessel coronary artery disease. * Ischemic cardiomyopathy, ejection fraction of 35% with inferior apical hypokinesis. * No MR. * No . * Two occluded vein grafts by prior study. * Patent RUFF to the LAD with a patent RUFF body stent and RUFF LAD and anastomotic stent. * Patent POBA sites of the circumflex. * Patent left main and intermediate stent with tandem 80% and 50% in-stent restenosis of the intermediate. * Successful drug-coated balloon angioplasty and NC balloon angioplasty with a 3.0 x 27 NC balloon into the intermediate and left main. * Successful in-stent stent placement with a stent sandwich technique in the proximal intermediate with a 3.0 x 15 with good final angiographic results. PLAN: At this point, the patient will be managed medically. We will reevaluate the patient's ventricular function in approximately 90 days to evaluate his candidacy for an AICD. TID: [id number] RECEIPT: [id number]
--- NOTE | 2025-04-14 14:37 | NUR ---
urinary: voided 800cc clear yellow color urine per urinal without difficulty.
--- NOTE | 2025-04-14 14:41 | NUR ---
report: report given tot rigoberto melendez rn on patients status
== END 2025-04-14 15:40 | disposition home or self-care (01) ==
LOC: SUH 06:01 → DAH 06:01 → SUH 15:40
PROVIDERS: ATTEND Internal Medicine Cardiovascular Disease
DX: I25.5 Ischemic cardiomyopathy (principal); I25.118 Atherosclerotic heart disease of native coronary artery with other forms of angina pectoris; T82.855A Stenosis of coronary artery stent, initial encounter; I11.0 Hypertensive heart disease with heart failure; I50.42 Chronic combined systolic (congestive) and diastolic (congestive) heart failure; R94.39 Abnormal result of other cardiovascular function study; E78.5 Hyperlipidemia, unspecified; E11.9 Type 2 diabetes mellitus without complications; Z95.1 Presence of aortocoronary bypass graft; Z95.5 Presence of coronary angioplasty implant and graft; Z79.82 Long term (current) use of aspirin; Z79.899 Other long term (current) drug therapy; Y71.2 Prosthetic and other implants, materials and accessory cardiovascular devices associated with adverse incidents
CPT/HCPCS: 80048; 83880; 85025; 85610; 85730; 81001; 36415 ×2; 71045; 93005; 93459; 92920; 99156; 99157 ×5; 85347 ×2; 82948 ×2; C9600; C1769; C1894 ×2; C1725; C1760 ×2; C1887; Q9965 ×2; C1874; J3010; J3490 ×3; J7030; J1644 ×2; J2250 ×4; Q9967 ×2; A4215; A4222; A4221; A4663; A4216; A4606; A4223 ×3; 96360; 96361